=== PATIENT | female | born 1965 | race Caucasian/White ===

== ENCOUNTER → 2017-10-26 | Outpatient (CLI) | payer BC ==
[~2017-10-26] MED LIST: AMOX875T PO; ESCI1TAB10 PO; ONDA4TAB7 SL; [UNRECOGNIZED DRUG - CODE] TOP
--- NOTE | 2017-10-26 14:35 | MAMMOGRAPHY REPORT ---
BILATERAL DIGITAL SCREENING MAMMOGRAM TOMOSYNTHESIS WITH CAD: 10/26/2017 CLINICAL HISTORY: Routine screening. Patient has no complaints. TECHNIQUE: Breast tomosynthesis in addition to standard 2D mammography was performed. Current study was also evaluated with a Computer Aided Detection (CAD) system. COMPARISON: Comparison is made to exams dated: 10/25/2016 mammogram, 11/04/2015 mammogram, 5 mammogram, 10/09/2014 mammogram, 10/08/2013 mammogram, and 10/03/2012 mammogram - [facility]. BREAST COMPOSITION: There are scattered areas of fibroglandular density in both breasts. FINDINGS: No suspicious masses, calcifications, or areas of architectural distortion are noted in ei ther breast. There has been no significant interval change compared to prior exams. Biopsy marker cl ips are again noted bilaterally. Nodular asymmetries in the left superior breast are stable compared to prior exams including the 2010 exam. IMPRESSION: ACR BI-RADS CATEGORY 2: BENIGN There is no mammographic evidence of malignancy. A 1 year screening mammogram is recommended. The pa tient will receive written notification of the results. Approximately 10% of breast cancers are not detected with mammography. A negative mammographic report should not delay biopsy if a clinically suggestive mass is present. Jadyn Ramos M.D. /:10/26/2017 07:51:22 Writing Tutor: Hilary IZAGUIRRE(Emma)(M)(BD), [facility] letter sent: Normal 1/2 BI-RADS Code: ACR BI-RADS Category 2: Benign
== END | disposition home or self-care (01) ==
LOC: C.MAMM 07:32
PROVIDERS: ATTEND Obstetrics & Gynecology
DX: Z12.31 Encounter for screening mammogram for malignant neoplasm of breast (principal)

== ENCOUNTER → 2018-01-05 | Outpatient (CLI) | payer BC | END | disposition home or self-care (01) | LOC: C.PAPS 18:21 | PROVIDERS: ATTEND Obstetrics & Gynecology | DX: Z01.419 Encounter for gynecological examination (general) (routine) without abnormal findings (principal) ==

== ENCOUNTER 2024-07-23 15:18 | Inpatient (IN) ==
[2024-07-23] MEDS: SODIUM CHLORIDE 0.9% 1,000 ML IV ONE (16:18)
--- NOTE | 2024-07-23 16:19 | Emergency Department Note ---
Impression & Plan Diverticulitis, Leukocytosis, Hives, Failure of outpatient treatment ED Provider Note NAME: EVER THOMPSON AGE: 59 SEX: F : 1965 ARRIVES VIA: Walk-In INFORMANT: [Patient] ED PROVIDER(S): [Randy Arango MD] CHIEF COMPLAINT: Abdominal pain HISTORY OF PRESENT ILLNESS: The patient is a 59-year-old female who presents with about 10 days of symptoms. She has had some lower abdominal pain. The patient was diagnosed with diverticulitis in the outpatient setting and placed on Augmentin. Patient has been on Augmentin for 8 days. She did hold the Augmentin last night and this morning though because, she developed hives last evening. The Benadryl she took last evening seemed to take the hives away. This morning, she woke up dizzy and nauseated and lightheaded. She again had hives. She went to her doctor's office and had laboratory work and outpatient CT imaging. Her white blood cell count was 13,000, her CT showed diverticulitis with a small abscess. She was referred to the ER. The patient has not had vomiting. No complaints of urinary issues or diarrhea. She states that 3 to 4 days ago, she developed a fever and also noticed a headache. She had a sore throat for a day or so that now seems to be resolved. PMHx/PSHx/Social Hx: See Below PHYSICAL EXAM: GENERAL: Patient is in no acute distress. HEENT: No acute trauma, normocephalic atraumatic, mucous membranes moist, no nasal congestion. No throat erythema or exudate. NECK: No stridor, no adenopathy, no meningismus, trachea is midline. LUNGS: Clear to auscultation bilaterally, no wheeze, no rhonchi, breath sounds equal. HEART: Without murmurs gallops or rubs, regular rate and rhythm. ABDOMEN: Soft, mildly tender in the lower abdomen, mostly on the right. No distention. EXTREMITIES: No cyanosis, full range of motion of all the joints without pain or difficulty. NEUROLOGIC: Oriented x 3, no acute motor or sensory deficits, no focal weakness. SKIN: No jaundice, no diaphoresis. Erythematous, patchy raised lesions noted consistent with urticaria. These do joaquin. DIFFERENTIAL DIAGNOSIS: Medication reaction, viral illness, diverticulitis, abscess, failed outpatient management, UTI, Lyme disease, among others. EMERGENCY DEPARTMENT PROCEDURES: MEDICAL DECISION MAKING: Outpatient laboratory work today showed a white blood cell count of 13,000 with a normal hemoglobin. CT imaging showed diverticulitis with a potential small abscess within the colonic wall. No perforation. Here in the ED, there was a leukocytosis at 14,000, this is consistent with infection. There is a normal hemoglobin and platelet count. No renal failure or significant electrolyte abnormality. Lactic acid level was not elevated making severe sepsis less likely. There was no concerning liver enzyme elevation. No evidence for pancreatitis. Urinalysis did not show infection. Respiratory bio fire was negative. Lyme disease testing was negative. On exam, the patient had hives. She had tenderness in the lower abdomen bilaterally. The patient received IV saline, 1 L. She was ordered for IV Cipro and IV Flagyl. With the hives noted, she received IV Benadryl and IV Solu-Medrol. The patient is in need of a hospital stay. She has failed outpatient treatment. She may be having a reaction to the Augmentin that had been prescribed outpatient. She persists with diverticulitis on CT imaging and may have a very small abscess on CT imaging. I discussed admission with the patient. I talked to case management, the on- call hospitalist was consulted. Prior/Outside records/notes reviewed: Outpatient CT imaging and laboratory work performed today showing a leukocytosis and diverticulitis with small abscess. Imaging/x-ray results per my interpretation: Chronic Medical/Social conditions affecting care: Care/Management discussed with: Level of care consideration(s): After review of the information above and other included data: --I believe the patient requires escalation of care to admission DISPOSITION: Admission Past Med/Surg History Problem List (Updated 07/23/24 @ 18:13 by Randy Arango MD) Failure of outpatient treatment (Acute) Hives (Acute) Leukocytosis (Acute) Diverticulitis (Acute) Urticaria due to drug allergy Hepatic cyst Depression Seizure disorder (Chronic) Medical History Diverticulitis Family History Aunt Breast cancer, Onset Age: 60 Grandmother (Maternal) Colorectal cancer, Onset Age: 70 Denies family history of Ovarian cancer Social History Smoking Status: Never smoker Do You Dip or Chew Tobacco: No; Preferred Language: Tongan Feels Safe at Home: Yes Allergies Allergies Allergy/AdvReac Type Severity Reaction Status Date / Time amoxicillin Allergy Intermediate Hives Verified 07/23/24 17:11 Home Meds Home Medications Medication Instructions Recorded Confirmed IBgard 1 tab PO DAILY 07/23/24 07/23/24 Probiotic 1 cap PO DAILY 07/23/24 07/23/24 adapalene 0.1 % topical cream 1 applic topical HS PRN Other 07/23/24 07/23/24 estradiol 0.01% (0.1 mg/gram) 1 g vaginal 2XWK PRN Other 07/23/24 07/23/24 vaginal cream sulfacetamide sodium-sulfur 10 %-5 1 applic topical DIRECTED PRN 07/23/24 07/23/24 % (w/w) topical cleanser Other Previous Rx's Medication Instructions Recorded escitalopram oxalate 10 mg tablet 10 mg PO DAILY #90 tabs 01/05/24 Results & Data (ED) Vital Signs Vital Signs - 24 hr 07/23/24 15:37 07/23/24 16:18 07/23/24 16:23 Temperature 36.9 C Temperature Source Oral Pulse Rate 79 74 73 Pulse Rhythm Regular Pulse Strength Normal Respiratory Rate 18 18 Respiratory Effort / Characteristics Non-Labored Respiratory Depth Normal Respiratory Pattern Regular Blood Pressure 132/85 Blood Pressure Mean 100 Blood Pressure Position Sitting Pulse Oximetry 99 98 Oxygen Delivery Method Room Air Room Air Sepsis Recent Fever Within 48 Hours Yes Sepsis New/Unexplained Change in Mental Status No Sepsis Action Taken by Nursing No Action Required Home Medications Current Medication List: was personally reviewed by me Laboratory Data Attestation: I reviewed the patient's lab results. 07/23/24 16:00 07/23/24 16:00 Lab Results 07/23/24 07/23/24 07/23/24 Range/Units 16:00 16:09 16:11 WBC 14.09 H (4.8-10.8) K/ul RBC 4.76 (4.20-5.40) M/uL Hgb 14.5 (12.0-16.0) g/dl Hct 42.4 (37.0-47.0) % MCV 89.1 (80.0-100.0) fL MCH 30.5 (25.0-34.0) pg MCHC 34.2 (32.0-36.0) g/dL RDW Std Deviation 41.1 (36.4-46.3) fL RDW Coeff of Gia 12.6 (11.5-14.5) % Plt Count 295 (130-400) K/uL MPV 9.0 L (9.4-12.4) fL Immature Gran % (Auto) 0.3 % Neut % (Auto) 76.8 % Lymph % (Auto) 17.0 % Woods % (Auto) 5.7 % Eos % (Auto) 0.1 % Baso % (Auto) 0.1 % Neut # (Auto) 10.82 H (1.40-6.50) K/uL Lymph # (Auto) 2.39 (1.20-3.40) K/uL Woods # (Auto) 0.80 H (0.11-0.59) K/uL Eos # (Auto) 0.02 (0.00-0.50) K/uL Baso # (Auto) 0.02 (0.00-0.20) K/uL Immature Gran # (Auto) 0.04 (0.01-0.20) K/uL Sodium 135 L (136-145) mmol/L Potassium 3.6 (3.5-5.1) mmol/L Chloride 99 (98-107) mmol/L Carbon Dioxide 28 (21-32) mmol/L Anion Gap 8 (3-11) BUN 13 (6-23) mg/dl Creatinine 0.72 (0.6-1.2) mg/dl Est Cr Clr Drug Dosing 90.7 ml/min Est GFR ( Amer) 105.5 ml/min Est GFR (Non-Af Amer) 91.0 ml/min BUN/Creatinine Ratio 18.1 (10-20) Glucose 94 (70-99(Fasting)) mg/dl Lactate (0.4-2.0) mmol/L Calcium 9.9 (8.6-10.3) mg/dl Magnesium 1.9 (1.7-2.4) mg/dl Total Bilirubin 0.7 (0.2-1.0) mg/dl AST 18 (13-39) U/L ALT 14 (7-52) U/L Alkaline Phosphatase 59 (34-104) U/L Total Protein 7.8 (6.0-8.3) gm/dl Albumin 4.9 (3.4-5.0) gm/dl Globulin 2.9 (2.5-4.0) gm/dl Albumin/Globulin Ratio 1.7 (0.9-2) Lipase 21 (11-82) U/L Urine Color Yellow Urine Appearance Clear (Clear) Urine pH 7.5 (4.5-7.5) Ur Specific [place] 1.011 (1.000-1.030) Urine Protein Negative (Negative) Urine Glucose (UA) Negative (Negative) Urine Ketones Negative (Negative) Urine Blood Negative (Negative) Urine Nitrite Negative (Negative) Urine Bilirubin Negative (Negative) Urine Urobilinogen Negative (Negative) Ur Leukocyte Esterase 2+ H (Negative) Urine WBC (Auto) 0-5 (0-5) /hpf Urine RBC (Auto) 0-2 (0-2) /hpf U Hyaline Cast (Auto) 0-2 (0-2) /lpf U Epithel Cells (Auto) 0-2 (0-2) /hpf Urine Bacteria (Auto) None Seen (None Seen) Adenovirus (PCR) Not Detected (NotDetected) B. pertussis DNA (PCR) Not Detected (NotDetected) B.parapertussis DNA PCR Not Detected (NotDetected) Lyme Disease Screen Negative (Negative) C. pneumoniae DNA (PCR) Not Detected (NotDetected) Coronavirus OC43 (PCR) Not Detected (NotDetected) Coronavirus HKU1 (PCR) Not Detected (NotDetected) Coronavirus 229E (PCR) Not Detected (NotDetected) SARS-CoV-2 (PCR) Not Detected (NotDetected) Coronavirus NL63 (PCR) Not Detected (NotDetected) Human Metapneumovir PCR Not Detected (NotDetected) Influenza Type A (PCR) Not Detected (NotDetected) Influenza Type B (PCR) Not Detected (NotDetected) M. pneumoniae (PCR) Not Detected (NotDetected) Parainfluenza 1 (PCR) Not Detected (NotDetected) Parainfluenza 2 (PCR) Not Detected (NotDetected) Parainfluenza 3 (PCR) Not Detected (NotDetected) Parainfluenza 4 (PCR) Not Detected (NotDetected) RSV (PCR) Not Detected (NotDetected) Entero/Rhino (PCR) Not Detected (NotDetected) 07/23/24 Range/Units 16:55 WBC (4.8-10.8) K/ul RBC (4.20-5.40) M/uL Hgb (12.0-16.0) g/dl Hct (37.0-47.0) % MCV (80.0-100.0) fL MCH (25.0-34.0) pg MCHC (32.0-36.0) g/dL RDW Std Deviation (36.4-46.3) fL RDW Coeff of Gia (11.5-14.5) % Plt Count (130-400) K/uL MPV (9.4-12.4) fL Immature Gran % (Auto) % Neut % (Auto) % Lymph % (Auto) % Woods % (Auto) % Eos % (Auto) % Baso % (Auto) % Neut # (Auto) (1.40-6.50) K/uL Lymph # (Auto) (1.20-3.40) K/uL Woods # (Auto) (0.11-0.59) K/uL Eos # (Auto) (0.00-0.50) K/uL Baso # (Auto) (0.00-0.20) K/uL Immature Gran # (Auto) (0.01-0.20) K/uL Sodium (136-145) mmol/L Potassium (3.5-5.1) mmol/L Chloride (98-107) mmol/L Carbon Dioxide (21-32) mmol/L Anion Gap (3-11) BUN (6-23) mg/dl Creatinine (0.6-1.2) mg/dl Est Cr Clr Drug Dosing ml/min Est GFR ( Amer) ml/min Est GFR (Non-Af Amer) ml/min BUN/Creatinine Ratio (10-20) Glucose (70-99(Fasting)) mg/dl Lactate 0.7 (0.4-2.0) mmol/L Calcium (8.6-10.3) mg/dl Magnesium (1.7-2.4) mg/dl Total Bilirubin (0.2-1.0) mg/dl AST (13-39) U/L ALT (7-52) U/L Alkaline Phosphatase (34-104) U/L Total Protein (6.0-8.3) gm/dl Albumin (3.4-5.0) gm/dl Globulin (2.5-4.0) gm/dl Albumin/Globulin Ratio (0.9-2) Lipase (11-82) U/L Urine Color Urine Appearance (Clear) Urine pH (4.5-7.5) Ur Specific [place] (1.000-1.030) Urine Protein (Negative) Urine Glucose (UA) (Negative) Urine Ketones (Negative) Urine Blood (Negative) Urine Nitrite (Negative) Urine Bilirubin (Negative) Urine Urobilinogen (Negative) Ur Leukocyte Esterase (Negative) Urine WBC (Auto) (0-5) /hpf Urine RBC (Auto) (0-2) /hpf U Hyaline Cast (Auto) (0-2) /lpf U Epithel Cells (Auto) (0-2) /hpf Urine Bacteria (Auto) (None Seen) Adenovirus (PCR) (NotDetected) B. pertussis DNA (PCR) (NotDetected) B.parapertussis DNA PCR (NotDetected) Lyme Disease Screen (Negative) C. pneumoniae DNA (PCR) (NotDetected) Coronavirus OC43 (PCR) (NotDetected) Coronavirus HKU1 (PCR) (NotDetected) Coronavirus 229E (PCR) (NotDetected) SARS-CoV-2 (PCR) (NotDetected) Coronavirus NL63 (PCR) (NotDetected) Human Metapneumovir PCR (NotDetected) Influenza Type A (PCR) (NotDetected) Influenza Type B (PCR) (NotDetected) M. pneumoniae (PCR) (NotDetected) Parainfluenza 1 (PCR) (NotDetected) Parainfluenza 2 (PCR) (NotDetected) Parainfluenza 3 (PCR) (NotDetected) Parainfluenza 4 (PCR) (NotDetected) RSV (PCR) (NotDetected) Entero/Rhino (PCR) (NotDetected) Administered Medications Discontinued Medications Diphenhydramine HCl (Diphenhydramine 50 Mg/Ml Vial) 25 mg IV NOW STA Stop: 07/23/24 16:09 Last Admin: 07/23/24 16:47 Dose: 25 mg Documented By: EMELY Sodium Chloride (Nss) 1,000 mls @ 999 mls/hr IV .Q1H1M ONE Stop: 07/23/24 16:53 Last Admin: 07/23/24 16:18 Dose: 999 mls/hr Documented By: EMELY Metronidazole (Flagyl) 500 mg in 100 mls @ 100 mls/hr IV NOW STA; Protocol Stop: 07/23/24 17:13 Last Admin: 07/23/24 16:47 Dose: 100 mls/hr Documented By: EMELY Methylprednisolone (Methylprednisolone 125 Mg/2 Ml Vial) 40 mg IV NOW STA Stop: 07/23/24 16:09 Last Admin: 07/23/24 16:47 Dose: 40 mg Documented By: EMELY Discharge Plan Visit Data Chief Complaint: Abdominal Pain Stated Complaint: DIVERTICULITIS ABCESS, HIVES, FEVER, REF BY DOC ED Provider: Randy Arango Discharge Problem: Diverticulitis, Leukocytosis, Hives, Failure of outpatient treatment Patient Disposition: Admitted As Inpatient Condition: Fair Forms Stand Alone Forms: [facility], Important Visit Information Prescriptions Prescriptions: No Action escitalopram oxalate 10 mg tablet 10 mg PO DAILY Qty: 90 3RF sulfacetamide sodium-sulfur 10-5 % (w/w) cleanser 1 applic TOPICAL DIRECTED PRN (Reason: Other) adapalene 0.1 % cream 1 applic TOPICAL HS PRN (Reason: Other) IBgard 1 tab PO DAILY Probiotic 1 cap PO DAILY estradiol 0.01 % (0.1 mg/gram) cream 1 g vaginal 2XWK PRN (Reason: Other) Referrals Referrals: Shaneka Delgado DO [Primary Care Provider] - Discharge Problem: Leukocytosis Qualifiers: Leukocytosis type: unspecified Qualified Code(s): D72.829 - Elevated white blood cell count, unspecified
[2024-07-23 16:35] LABS: Basophils # (auto) 0.02 K/uL (0.00-0.20); Basophils % (auto) 0.1 %; Eosinophils # (auto) 0.02 K/uL (0.00-0.50); Eosinophils % (auto) 0.1 %; Hematocrit (blood only) 42.4 % (37.0-47.0); Hemoglobin 14.5 g/dl (12.0-16.0); Immature Granulocytes # (auto) 0.04 K/uL (0.01-0.20); Immature Granulocytes % (auto) 0.3 %; Lymphocytes # (auto) 2.39 K/uL (1.20-3.40); Mean Corpuscular Hemoglobin 30.5 pg (25.0-34.0); Mean Corpuscular Hgb Conc 34.2 g/dL (32.0-36.0); Mean Corpuscular Volume 89.1 fL (80.0-100.0); Monocytes % (auto) 5.7 %; Neutrophils # (auto) 10.82 K/uL (1.40-6.50); Neutrophils % (auto) 76.8 %; Platelet Count 295 K/uL (130-400); RDW Coefficient of Variation 12.6 % (11.5-14.5); RDW Standard Deviation 41.1 fL (36.4-46.3); Red Blood Count 4.76 M/uL (4.20-5.40); White Blood Count 14.09 K/ul (4.8-10.8)
[2024-07-23 16:41] LABS: Appearance Urine Clear (Clear); Bacteria Urine Automated None Seen (None Seen); Bilirubin Urine Negative (Negative); Blood Urine Negative (Negative); Cast Urine Automated 0-2 /lpf (0-2); Color Urine Yellow; Epithelial Cell Urine Auto 0-2 /hpf (0-2); Glucose Urine UA Negative (Negative); Ketones Urine Negative (Negative); Leukocyte Esterase Urine 2+ (Negative); Nitrite Urine Negative (Negative); Protein Urine Negative (Negative); RBC Urine Automated 0-2 /hpf (0-2); Specific Gravity Urine 1.011 (1.000-1.030); Urobilinogen Urine Negative (Negative); WBC Urine Automated 0-5 /hpf (0-5); pH Urine 7.5 (4.5-7.5)
[2024-07-23] MEDS: methylPREDNISolone 125 MG/2 ML VIAL IV STA (16:47)
[2024-07-23] MEDS: metroNIDAZOLE 500 MG/100 ML BAG IV STA (16:47)
[2024-07-23] MEDS: diphenhydrAMINE 50 MG/ML VIAL IV STA (16:47)
[2024-07-23 16:52] LABS: Albumin Globulin Ratio 1.7 (0.9-2); Albumin Level 4.9 gm/dl (3.4-5.0); BUN Creatinine Ratio 18.1 (10-20); Bilirubin,Total 0.7 mg/dl (0.2-1.0); Calcium 9.9 mg/dl (8.6-10.3); Creatinine Clr Calc Pharmacy 90.7 ml/min; Est GFR (African American) 105.5 ml/min; Globulin 2.9 gm/dl (2.5-4.0); Magnesium 1.9 mg/dl (1.7-2.4); Potassium 3.6 mmol/L (3.5-5.1); Total Protein 7.8 gm/dl (6.0-8.3)
[2024-07-23 17:22] LABS: Adenovirus PCR Not Detected (NotDetected); Bordetella parapertussis PCR Not Detected (NotDetected); Bordetella pertussis PCR Not Detected (NotDetected); Chlamydia pneumoniae PCR Not Detected (NotDetected); Coronavirus 229E PCR Not Detected (NotDetected); Coronavirus CoV-2 (COVID19)PCR Not Detected (NotDetected); Coronavirus HKU1 PCR Not Detected (NotDetected); Coronavirus NL63 PCR Not Detected (NotDetected); Coronavirus OC43PCR Not Detected (NotDetected); Human Metapneumovirus PCR Not Detected (NotDetected); Influenza A PCR Not Detected (NotDetected); Influenza B PCR Not Detected (NotDetected); Mycoplasma pneumoniae PCR Not Detected (NotDetected); Parainfluenza Virus 1 PCR Not Detected (NotDetected); Parainfluenza Virus 2 PCR Not Detected (NotDetected); Parainfluenza Virus 3 PCR Not Detected (NotDetected); Parainfluenza Virus 4 PCR Not Detected (NotDetected); Respiratory Syncytial VirusPCR Not Detected (NotDetected); Rhinovirus/Enterovirus PCR Not Detected (NotDetected)
--- NOTE | 2024-07-23 17:23 | History & Physical Report ---
Date of Service July 23, 2024 Assessment & Plan (1) Diverticulitis: (2) Urticaria due to drug allergy: (3) Hepatic cyst: (4) Depression: Plan Patient with significant symptoms related to diverticulitis that seems to have failed outpatient therapy with Augmentin with probable adverse/allergic reaction to amoxicillin manifested by hives.. Patient at high risk for further decompensation and needs hospital level care and IV antibiotics and monitoring. Admit to the [facility] floor Continue IV ciprofloxacin and Flagyl IV fluid resuscitation Will continue to monitor outpatient response to 1 dose of steroids, would like to avoid additional steroids if possible with setting of possible abscess in the sigmoid colon. Will continue Claritin and Pepcid for antihistamine effect. As needed Benadryl if she has significant pruritus in addition to these treatments. CT of the chest to further evaluate this partial finding of the distal esophagus. Liver cyst can be further evaluated outpatient Monitor laboratory studies At this time there does not appear to be any need for surgical intervention or drainage of this abscess will continue to monitor. Will if patient does not respond to antibiotics may need to consider surgical evaluation. History of Present Illness Chief Complaint: Abdominal pain and hives Primary Care Provider: Shaneka Delgado DO Patient is a 59-year-old female with known diverticulosis with previous episodes of diverticulitis that was treated as an outpatient. Was on vacation in about 2 weeks ago when she started with some abdominal discomfort. Seen urgent care and was started on Augmentin. Seems to get better within 48 hours of starting the Augmentin and continued the course of treatment. Over the weekend she states that she started with some sore throat and generalized malaise. She reportedly tested negative for COVID-19 with a home test. However last night she woke up with diffuse hives over her abdomen arms legs and back. And her abdominal discomfort significantly increased. She had an appointment with her PCP earlier today. Outpatient laboratory studies showed leukocytosis and outpatient CT of the abdomen pelvis revealed persistent diverticulitis with small potentially developing phlegmon versus abscess in the wall of the sigmoid colon. She was referred to the emergency department for further care. In the emergency department reviewed see if some Solu-Medrol for the hives. WBCs was increased at 14 and she was referred for further evaluation and treatment in the hospital due to failing outpatient treatment. Patient at the time of my evaluation is feeling improved. She reports never having issues with penicillins before. No other new medications or products that she could point to that may have caused the hives. She reports having had successful treatment of Augmentin for diverticulitis in the past. Her last colonoscopy was in 2020 which showed the diverticulosis. She denies any documented fevers. No chills or rigors. Did have some constipation early on in her course of care but none since. No urinary complaints. States that her pain is really across her abdomen and suprapubically. is at bedside confirms history. Patient does not smoke does not use alcohol. Allergies Allergy/AdvReac Type Severity Reaction Status Date / Time amoxicillin Allergy Intermediate Hives Verified 07/23/24 17:11 Home Medications Medication Instructions Recorded Confirmed Type escitalopram oxalate 10 mg tablet 10 mg PO DAILY #90 tabs 01/05/24 07/23/24 Rx IBgard 1 tab PO DAILY 07/23/24 07/23/24 History Probiotic 1 cap PO DAILY 07/23/24 07/23/24 History adapalene 0.1 % topical cream 1 applic topical HS PRN Other 07/23/24 07/23/24 History estradiol 0.01% (0.1 mg/gram) 1 g vaginal 2XWK PRN Other 07/23/24 07/23/24 History vaginal cream sulfacetamide sodium-sulfur 10 %-5 1 applic topical DIRECTED PRN 07/23/24 07/23/24 History % (w/w) topical cleanser Other Past Med/Surg History Problem List (Updated 07/23/24 @ 17:20 by Raul Acevedo DO) Urticaria due to drug allergy Hepatic cyst Depression Seizure disorder (Chronic) Family History Aunt Breast cancer, Onset Age: 60 Grandmother (Maternal) Colorectal cancer, Onset Age: 70 Denies family history of Ovarian cancer Social History Smoking Status: Never smoker Do You Dip or Chew Tobacco: No; Preferred Language: Belarusian Feels Safe at Home: Yes Review of Systems 2 Review of Systems: Pertinent positive and negative review of systems as mentioned in the HPI Physical Exam Physical Exam: Constitutional: Alert, ill in appearance, no acute distress, mildly toxic in appearance HEENT: Mucous membranes moist. Sclera clear Neck: Soft, no adenopathy Lungs: Clear to auscultation, decreased, no wheezes rales or rhonchi CV: S1-S2, regular Abdomen: Soft, suprapubic tenderness, right lower quadrant tenderness, left lower quadrant tenderness most significant. Some mild rebound but no guarding or rigidity Extremities: No significant edema Musculoskeletal: No significant joint tenderness Neuro: No focal deficits Derm: Patient with large urticaria over her abdomen, upper arms, upper legs, back, warm to touch Psych: Cooperative, normal mood Results & Data Results & Data Vital Signs (Past 12 Hours) Vital Signs Temp Pulse Resp BP Pulse Ox O2 Del Method 07/23/24 16:23 73 07/23/24 16:18 74 18 98 Room Air 07/23/24 15:37 36.9 C 79 18 132/85 99 Room Air Diagnostic Findings Reviewed imaging, laboratory and diagnostic studies. Pertinent findings as below. WBCs 14.0, hemoglobin 14.5 Sodium 135 Potassium 3.6 Creatinine 0.72 Lactate 0.7 LFTs within normal limits Lipase 21 Urinalysis unremarkable Respiratory viral panel pending Reviewed outpatient/alternate EMR. Reviewed last colonoscopy report Reviewed CT abdomen pelvis report done earlier today. Findings show thickening of the sigmoid colon with stranding and possible early intramural abscess phlegmon in the wall of the sigmoid colon. Hepatic complex cyst. And questionable some type of low-density lesion abutting the distal esophagus has not fully visualized Medications Administered Flagyl, Benadryl, methylprednisone Code Status & VTE Plan VTE Prophylaxis Plan VTE Prophylaxis will be ordered: Yes
[2024-07-23] MEDS: CIPROFLOXACIN / D5W 400 MG/200 ML BAG IV STA (18:17)
--- NOTE | 2024-07-23 19:17 | CT Scan Report ---
CT OF THE CHEST WITHOUT IV CONTRAST CLINICAL HISTORY: Lesion near distal esophagus seen outpt abd CT. COMPARISON STUDY: Chest radiograph April 02, 2015. CT of the abdomen and pelvis April 02, 2015. CT DOSE: 312.36 mGy.cm TECHNIQUE: Axial images of the chest were obtained without IV contrast. Images were reviewed in the axial, sagittal, and coronal planes. IV contrast was not administered for this examination. Automat ed exposure control was utilized for the study. A dose lowering technique was utilized adhering to t he principles of ALARA. FINDINGS: No enlarged mediastinal, axillary or hilar lymph nodes are present. Size of the heart is n ormal. There is no significant pericardial effusion. A 2.5 cm water attenuation density along the rig ht lateral aspect of the distal esophagus represents a pericardial recess. This could reflect the abn ormality on prior outpatient imaging study. No pneumothorax or pleural effusion is present. There is no consolidation to suggest pneumonia. There are no suspicious pulmonary nodules. No fractures within the bony thorax are present. There is a left hepatic lobe cyst. IMPRESSION: 1. 2.5 cm water attenuation density along the right lateral aspect of the distal esophagus which repr esents a pericardial recess, a benign finding. Correlation with outpatient abdominal CT to confirm th at this represents the abnormality in question is recommended. 2. No thoracic lymphadenopathy. No mediastinal masses. 3. No consolidation to suggest pneumonia. ACT 112: Negative or not required by law. Electronically signed by: Rigoberto Pereira M.D. 07/23/2024 7:15 PM
[2024-07-23] MEDS ORDERED: ACETAMINOPHEN 325 MG TAB PO PRN (20:30)
[2024-07-23] MEDS ORDERED: ONDANSETRON INJ 2 MG/ML 2 ML VIAL IV PRN (20:30)
[2024-07-23] MEDS ORDERED: KETOROLAC TROMETHAMINE 15 MG/ML VIAL IV PRN (20:30)
[2024-07-23] MEDS ORDERED: oxyCODONE HCL IR 5 MG TAB (IMMEDIATE RELEASE) PO PRN (20:30)
[2024-07-23] MEDS ORDERED: Nursing to Pharmacy Communication SCH (20:45)
[2024-07-23] MEDS: NSS + 20MEQ KCL 20 MEQ/1,000 ML BAG IV SCH (21:17)
[2024-07-23] MEDS: FAMOTIDINE 20MG IV PUSH 20 MG/5 ML SYR IV SCH (21:18)
[2024-07-23] MEDS: ENOXAPARIN INJ 40 MG/0.4 ML SYR SQ SCH (21:18)
[2024-07-23] MEDS: LORATADINE 10 MG TAB PO SCH (21:30)
[2024-07-23] MEDS: metroNIDAZOLE 500 MG/100 ML BAG IV SCH (23:51)
--- OUTSIDE RECORDS SUMMARY | 2024-07-24 05:09 | External Medical Summary ---
Author Name Unknown Address Unknown Organization [id number]:[facility] [address] [place] [id number] Laboratory Report Ordering Provider Test Date Status FRANNIE NEGRO 07/23/2024 12:34:06 Final Observation Date Value Abnormality Reference (Units ) Status WBC, Total 07/23/2024 12:34:06 13.68 Above high normal 4 .00-10.80 (K/uL) Final RBC 07/23/2024 12:34:06 4.35 3.85-5.15 (M/uL) Final Hemoglobin 07/23/2024 12:34:06 13.5 12.0-15.3 (g/dL) Final Anemia reflex testing trigge rs on a HGB < 12.0 for Females and HGB < 13.0 for Males in accordance with the WHO Anemia Guidelines
Anemia reflex testing triggers on a HGB < 12.0 for Females and HGB < 13.0 for Males in accordance with the WHO Anemia Guidelines HCT 07/23/2024 12:34:06 39.4 36.0-45.2 (%) Final MCV 07/23/2024 12:34:06 90.6 81.5-97.5 (fL) Final MCH 07/23/2024 12:34:06 31.0 27.0-34.0 (pg) Final MCHC 07/23/2024 12:34:06 34.3 32.0-36.0 (g/dL) Final RDW 07/23/2024 12:34:06 12.8 11.5-15.5 (%) Final Platelets 07/23/2024 12:34:06 275 140-400 (K /uL) Final MPV 07/23/2024 12:34:06 8.8 6.6-11.1 ( fL) Final Performing Location [facility] [address] [place] [id number]
--- OUTSIDE RECORDS SUMMARY | 2024-07-24 05:09 | External Medical Summary | Summary of Care ---
Author Name Unknown Organization [facility] Address [address] [facility] [place] [address] Phone [phone] Care Team Providers Care Flooring Machine Operator Name Role Phone Danny Shaneka Ariane LUBIN Primary Care Provider [phone] Reason for Visit * Reason Comments Rheum Follow Up Recheck bilateral th umb pain Encounter Details Date Type Department Care Team (Latest Contact Info) Description 04/08/2024 8:00 AM EDT Office Visit Rheumatology [address] [id number] [place] [address] Kit Kennedy PA-C [address] [facility] [place] [facility] [place] [address] Arthritis of carpometacarpal (CMC) joint of both thumbs* Allergies No known active allergiesdocumented as of this encounter (statuses as of 04/08/2024) Medications Medication Sig Dispensed Refills Start Date End Date Status LEXAPRO 10 MG PO TABSIndications:Anxi ety state (1) daily 90 Tab 3 04/11/2012 Active Sulfacetamide Sodium-Sulfur 10-5 % EMUL Use twice daily as needed 03/19/2015 Active ondansetron (ZOFRAN) 4 MG TabletIndications:Na usea Take 1 Tab by mouth every 6 hours as needed for Nausea. 30 Tab 03/06/2017 Active Additional Information Patient not taking.Reported on 04/08/2024 ibuprofen (MOTRIN) 600 MG Tablet As needed 10/28/2019 Active triamcinolone acetonide (ARISTOCORT) 0.1 % cream As needed 10/01/2019 Active Tretinoin 0.075 % External Cream Apply topically to affected area. Apply to face Active Albuterol Sulfate HFA 108 (90 Base) MCG/ACT Inhalation Aerosol SolutionIndications: Acute bronchitis, antibiotics not indicated 2 puffs as needed every 4 hours as needed 18 g 02/06/2023 Active Estradiol 0.1 MG/GM Vaginal Cream APPLY 1 GRAM VAGINALLY TWICE A WEEK DIRECTED 02/17/2022 Active Hospital, Clinic, or Other Facility Administered Medication Ordered Dose Route Frequency Start Date End Date Status methylPREDNISolone acetate (Depo-Medrol) 40 MG/ML inj 40 mgIndications:Arthriti s of carpometacarpal (CMC) joint of both thumbs 40 mg IX ONCE 04/08/2024 04/08/2024 Discontinued methylPREDNISolone acetate (Depo-Medrol) 40 MG/ML inj 40 mgIndications:Arthriti s of carpometacarpal (CMC) joint of both thumbs 40 mg IX ONCE 04/08/2024 04/08/2024 Discontinued methylPREDNISolone acetate (Depo-Medrol) 40 MG/ML inj 20 mgIndications:Arthriti s of carpometacarpal (CMC) joint of both thumbs 20 mg IX ONCE 04/08/2024 04/08/2024 Ended methylPREDNISolone acetate (Depo-Medrol) 40 MG/ML inj 20 mgIndications:Arthriti s of carpometacarpal (CMC) joint of both thumbs 20 mg IX ONCE 04/08/2024 04/08/2024 Ended documented as of this encounter (statuses as of 04/08/2024) Active Problems Problem Noted Date Diagnosed Date Arthritis of carpometacarpal (CMC) joint of both thumbs 04/08/2024 Gastroesophageal reflux disease with esophagitis 03/27/2019 IBS (irritable bowel syndrome) 03/27/2019 Displacement of lumbar inter vertebral disc without myelopathy 03/03/2006 Endometriosis documented as of this encounter (statuses as of 04/08/2024) Resolved Problems Problem Noted Date Diagnosed Date Resolved Date Family history of lymphoma 08/07/2014 0 03/27/2019 Overview: Both parents ADVANCE DIRECTIVE INFORMATION 09/07/2006 10/25/2018 Overview: Yes, Patient instructed to provide copy of advance directive for provider to review and to be scanned into Electronic Medical Record 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 03/08/2018 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 10/25/2018 Female infertility 8 documented as of this encounter (statuses as of 04/08/2024) Immunizations Name Administration Dates Next Due COVID-19 mRNA, LNP-s, No Pre serve, 2-Dose Series (Pfizer) 01/26/2021,01/05/2021 PPD 05/20/2011 Pneumococcal Polysaccharide PPV23 (Pneumovax) 08/13/2020 Seasonal Influenza, PF, 6 M & above, IM , (FluLaval or Fluzone) 08/26/2017 Seasonal Influenza, Quadriva lent, No Preserve, IM 07/31/2023,08/02/2021,08/05/2020,09/07,08/11/2015 Seasonal Influenza, Split, I IV3, With Preserve, Inj 08/07/2014,08/06/2013,08/21/2012,07/2012,08/10/2010,08/12/2009,09/19/20 08,09/11/2007 TD - Tetanus/Diptheria (ADULT) 01/17/2000 0 01/16/2010 TD, Preservative Free 01/17/2000 TDAP (age 10 and older)(Boostrix) 10/27/2020 TDAP, Age 7 and older, IM (Adacel) 03/24/2010 Zoster Vaccine Recombinant (Shingrix) 06/22/2018 ,04/07/2018 documented as of this encounter Social History Tobacco Use Types Packs/Day Years Used Date Smoking Tobacco: Never Smokeless Tobacco: Never Tobacco Cessation:Counseling Given: Not Answered Alcohol Use Standard Drinks/Week Comments Not Currently 0 (1 standard drink = 0.6 oz pur e alcohol) socially only PHQ-2 Answer Date Recorded PHQ Adult Total Score 0 08/22/2023 Hunger Vital Sign Answer Date Recorded Within the past 12 months, y ou worried that your food would run out before you got the money to buy more. Never true 02/07/20 23 Within the past 12 months, t he food you bought just didn't last and you didn't have money to get more. Never true 02/06/2023 Sex and Gender Information Value Date Recorded Sex Assigned at Female 03/27/2019 3:37 PM EDT Gender Identity Female 03/27/2019 3:37 PM EDT Sexual Orientation Straight 02/06/2023 8: 02 AM EDT Job Start Date Occupation Industry Not on file Not on file Not on file documented as of this encounter Last Filed Vital Signs Vital Sign Reading Time Taken Comments Blood Pressure 110/70 04/08/2024 8:05 AM EDT Pulse - - Temperature 36.9 C (98.4 F) 04/08/2024 8:05 AM ED T Respiratory Rate - - Oxygen Saturation - - Inhaled Oxygen Concentration - - Weight 73.9 kg (163 lb) 04/08/2024 8:05 AM EDT Height - - Body Mass Index 24.78 01/30/2024 1:42 PM EDT documented in this encounter Progress Notes * Kit Kennedy PA-C - 04/08/2024 7:57 AM EDTAssociated Order(s): SM Joint Inj/Arthro: bilateral thumb CMC Post-Procedure Diagnose(s): Arthritis of carpometacarpal (CMC) joint of both thumbs Subjective: Patient seen today for further follow up evaluation of osteoarthritis of bilateral thumbs. Has someother arthritis changes to great to and DIP joints of hands, but thumbs are painful. Last injected in 2020. Has been using Voltaren without any real relief. Previous injections did help. All other review of systems reviewed and negative other than mentioned in HPI. Social History: Social History Tobacco Use Smoking status: Never Smokeless tobacco: Never Substance Use Topics Alcohol use: Not Currently Comment: socially only Vaping/E-Cigarette Use Vaping/E-Cigarette Use Never User Vaping/E-Cigarette Substances Vaping/E-Cigarette Devices All other review of systems reviewed and negative other than mentioned in HPI. Current Outpatient Medications Medication Sig Dispense Refill LEXAPRO 10 MG PO TABS (1) daily 90 Tab 3 Sulfacetamide Sodium-Sulfur 10-5 % EMUL Use twice daily as needed ibuprofen (MOTRIN) 600 MG Tablet As needed triamcinolone acetonide (ARISTOCORT) 0.1 % cream As needed Tretinoin 0.075 % External Cream Apply topically to affected area. Apply to face Albuterol Sulfate HFA 108 (90 Base) MCG/ACT Inhalation Aerosol Solution 2 puffs as needed every 4 hours as needed 18 g 0 Estradiol 0.1 MG/GM Vaginal Cream APPLY 1 GRAM VAGINALLY TWICE A WEEK DIRECTED ondansetron (ZOFRAN) 4 MG Tablet Take 1 Tab by mouth every 6 hours as needed for Nausea. (Patient not taking: Reported on 04/08/2024) 30 Tab 0 No current facility-administered medications for this visit. Physical Exam: BP 110/70 | Temp 36.9 C (98.4 F) (Infrared ) | Wt 73.9 kg (163 lb) | BMI 24.78 kg/m | BSA 1.88 m Physical Exam Musculoskeletal: General: Tenderness present. No swelling. Normal range of motion. Comments: Heberdens nodes of DIP joints noted on bilateral hands. Probably ganglion cyst on anterior ankle. Surgery with Fixed left great toe and some bulky nodes on right great toe Assessment: 1. Arthritis of carpometacarpal (CMC) joint of both thumbs Consent obtained. Injection performed as noted below. Can follow up prn for further injections. Cancontinue Voltaren up to 4 times daily. - methylPREDNISolone acetate (Depo-Medrol) 40 MG/ML inj 20 mg - methylPREDNISolone acetate (Depo-Medrol) 40 MG/ML inj 20 mg SM Joint Inj/Arthro: bilateral thumb CMC on 04/08/2024 8:30 AM Indications: pain Details: 25 G needle, radial approach Medications (Right): (20 mg depo-medrol) Aspirate (Right): 0 mL Medications (Left): (20 mg depo-medrol) Aspirate (Left): 0 mL Outcome: tolerated well, no immediate complications Procedure, treatment alternatives, risks and benefits explained, specific risks discussed. Consent was given by the patient. Immediately prior to procedure a time out was called to verify the correctpatient, procedure, equipment, unit support representative and site/side marked as required. Patient was prepped and draped in the usual sterile fashion. Kit Kennedy PA-C Department of Rheumatology The patient was discussed with me. I agree with the findings and plan as documented by Kit [place] in this note. Jah Loza MD Rheumatology Department documented in this encounter Nursing Notes * José Miguel Marin LPN - 04/08/2024 8:04 AM EDT Chief Complaint Patient presents with Rheum Follow Up Recheck bilateral thumb pain documented in this encounter Plan of Treatment Upcoming Encounters Date Type Department Care Team (Late st Contact Info) Description 02/04/2025 2:00 PM EDT Office Visit Family Practice [facility] [address] [place] [address] Shaneka Delgado DO [address] [place] [address] Scheduled Procedures Name Priority Associated Diagnoses Date/Ti me COLONOSCOPY FLEXIBLE PROXIMAL DIAGNOSTIC Recall History of colon polyps Health Maintenance Due Date Last Done Comments HIV Screening 1979 Hepatitis C Screening 1982 Cologuard 2009 Fecal Occult Blood Test 2009 Sigmoidoscopy 2009 COVID-19 Vaccine ( season) 2023 01/26/2021, 01/05/2021 Depression Screening 08/22/2024 08/22/2023 Mammogram 11/30/2024 11/30/2023, 11/07, 11/23/2021, Additional history exists Colonoscopy 02/17/2026 02/17/2021, 02/04, 05/29/2015, Additional history exists Colorectal Cancer Screening 02/17/2026 Diabetes Screening 02/13/2027 02/14/2024, 0 11/08/2022, 11/08/2022, Additional history exists Lipid Panel 02/13/2029 02/14/2024, 04/06, 09/06/2014, Additional history exists DTaP,Tdap,and Td Vaccines (3 - Td or Tdap) 10/27/2030 10/27/2020, 03/24/2010, 01/17/2000, Additional history exists Pap Smear Discontinued 06/25/2015 (Done elsewhere), 06/14/2013, 06/14/2013 (Done elsewhere), Additional history exists Zoster Vaccines Completed 06/22/2018, 04/07/2018 Pneumococcal Vaccine: Pediatrics (0 to 5 Years) and At-Risk Patients (6 to 64 Years) Aged Out 08/13/2020 No longer eligible based on patient's age to complete this topic RETIRED - COLONOSCOPY-EVERY 5 YRS AGES 18-100 Discontinued 02/17/2021, 02/17/2021, 05/29/2015, Additional history exists Influenza Vaccine (FLU shot) Completed 07/31/2023, 08/02/2021, 08/05/2020, Additional history exists GARDASIL-HPV IMMUNIZATION SERIES Aged Out No longer eligible based on patient's age to complete this topic Hepatitis B Aged Out No longer eligi ble based on patient's age to complete this topic MENINGOCOCCAL (MENACTRA/MENVEO) Aged Out No longer eligible based on patient's age to complete this topic documented as of this encounter Medical Devices Not on filedocumented as of this encounter Procedures Procedure Name Priority Date/Time Associated Diagnosis Comments ME ARTHROCENTESIS ASPIR&/INJ SMALL JT/BURSA W/O US Routine 04/08/2024 8:30 AM EDT Arthritis of carpometacarpal (CMC) joint of both thumbs documented in this encounter Results * ME ARTHROCENTESIS ASPIR&/INJ SMALL JT/BURSA W/O US (04/08/2024 8:30 AM EDT) Narrative Jah Loza MD - 04/08/2024 8:30 AM EDT Jah Loza MD 04/08/2024 9:32 AM SM Joint Inj/Arthro: bilateral thumb CMC on 04/08/2024 8:30 AM Indications: pain Details: 25 G needle, radial approach Medications (Right): (20 mg depo-medrol) Aspirate (Right): 0 mL Medications (Left): (20 mg depo-medrol) Aspirate (Left): 0 mL Outcome: tolerated well, no immediate complications Procedure, treatment alternatives, risks and benefits explained, specific risks discussed. Consent was given by the patient. Immediately prior to procedure a time out was called to verify the correct patient, procedure, equipment, unit support representative and site/side marked as required. Patient was prepped and draped in the usual sterile fashion. Kit Kennedy PA-C PROCDOC FORM documented in this encounter Visit Diagnoses Diagnosis Arthritis of carpometacarpal (CMC) joint of both thumbs- Primary documented in this encounter Administered Medications Inactive Administered Medications - up to 3 most recent administrations Medication Order MAR Action Action Date Dose Rate Site methylPREDNISolone acetate (Depo-Medrol) 40 MG/ML inj 20 mg 20 mg, Intra-Articular, ONCE, On Mon04/08/24 at 0845, For 1 dose Given 04/08/2024 8:26 AM EDT 20 mg Hand Right methylPREDNISolone acetate (Depo-Medrol) 40 MG/ML inj 20 mg 20 mg, Intra-Articular, ONCE, On Mon04/08/24 at 0845, For 1 dose Given 04/08/2024 8:25 AM EDT 20 mg Hand Left documented in this encounter Care Teams Flooring Machine Operator Relationship Specialty Start Date End Date Shaneka Delgado DO [address] [place] [address] PCP - General Family Medicine 11/26/18 documented as of this encounter"
--- OUTSIDE RECORDS SUMMARY | 2024-07-24 05:09 | External Medical Summary ---
Author Name Unknown Address Unknown Organization [facility] [address] [place] [id number] Laboratory Report Ordering Provider Test Date Status FRANNIE NEGRO 07/23/2024 12:34:06 Final Observation Date Value Abnormality Reference (Units ) Status SYNC LEUKOCYTES IN BLOOD BY AUTOMATED COUNT 07/23/2024 12:34:06 13.68 Above high normal 4.00-10.80 (K/uL) Final Segs 07/23/2024 12:34:06 83.6 Above high normal 40.0-75.0 (%) Final Lymphs % 07/23/2024 12:34:06 9.6 Below low normal 18.0-42.0 (%) Final Monos 07/23/2024 12:34:06 6.6 1.0-11.0 (%) Final Eosinophils 07/23/2024 12:34:06 0.1 0.0-6.0 (%) Final Basos 07/23/2024 12:34:06 0.1 0.0-2.0 (%) Final Absolute Segs 07/23/2024 12:34:06 11.45 Above high normal 1.80-7.70 (K/uL) Final Lymphs, absolute 07/23/2024 12:34:06 1.31 1.00-4.80 (K/ul) Final Monos, Abs 07/23/2024 12:34:06 0.90 0.00-1.10 (K/uL) Final Eos, Abs 07/23/2024 12:34:06 0.01 0.00-0.70 (K/uL) Final Basos, Abs 07/23/2024 12:34:06 0.01 0.00-0.20 (K/uL) Final [facility]forming Location [facility] [address] [place] [id number]
--- OUTSIDE RECORDS SUMMARY | 2024-07-24 05:09 | External Medical Summary ---
Author Name Unknown Address Unknown Organization [facility] [place] [address] Laboratory Report Ordering Provider Test Date Status FRANNIE NEGRO 07/23/2024 12:34:06 Final Observation Date Value Abnormality Reference (Units ) Status BUN 07/23/2024 12:34:06 16 6-20 (mg/dL) Final Creatinine 07/23/2024 12:34:06 0.7 0.5-1.0 (mg/dL) Final Glomerular filtration rate/1.73 sq M.predicted [Volume Rate/Area] in Serum, Plasma or Blood by Creatinine-based formula (CKD-EPI) 07/23/2024 12:34:06 >90 >=60 (mL/min) Final eGFR is calculated based on the CKD-EPI 2020 equation. Sodium 07/23/2024 12:34:06 140 135-146 (m mol/L) Final Potassium 07/23/2024 12:34:06 4.3 3.5-5.1 (m mol/L) Final Cl 07/23/2024 12:34:06 102 98-107 (mm ol/L) Final CO2 07/23/2024 12:34:06 25 22-32 (mmo l/L) Final Anion gap 07/23/2024 12:34:06 13 7-15 (mmol /L) Final Glucose 07/23/2024 12:34:06 115 70-120 (mg /dL) Final Calcium 07/23/2024 12:34:06 9.9 8.4-10.2 ( mg/dL) Final Performing Location [facility] [place] [id number]
--- OUTSIDE RECORDS SUMMARY | 2024-07-24 05:09 | External Medical Summary | Summary of Care ---
Author Name Unknown Organization [facility] Address [address] [facility] [place] [place] [address] Phone [phone] Care Team Providers Care Central Station Operator Name Role Phone Shaneka Deglado DO Primary Care Provider [phone] Reason for Visit * Reason Onset Date Comments Health Maintenance 06/18/2024 Encounter Details Date Type Department Care Team (Late st Contact Info) Description 06/18/2024 Telephone Family Practice [facility] [address] [place] [address] Shaneka Delgado DO [address] [place] [address] Health Maintenance Allergies No known active allergiesdocumented as of this encounter (statuses as of 06/18/2024) Medications Medication Sig Dispensed Refills Start Date [...] VAGINALLY TWICE A WEEK DIRECTED 02/17/2022 Active documented as of this encounter (statuses as of 06/18/2024) Active Problems Problem Noted Date Diagnosed Date Arthritis of carpometacarpal (CMC) joint of both thumbs 04/08/2024 Gastroesophageal reflux disease with esophagitis 03/27/2019 IBS (irritable bowel syndrome) 03/27/2019 Displacement of lumbar inter vertebral disc without myelopathy 03/03/2006 Endometriosis documented as of this encounter (statuses as of 06/18/2024) Resolved Problems Problem Noted Date Diagnosed Date [...] as of this encounter (statuses as of 06/18/2024) Immunizations Name Administration Dates Next Due COVID-19 mRNA, LNP-s, No Pre serve, 2-Dose Series (MembraneX) 01/26/2021,01/05/2021 PPD 05/20/2011 Pneumococcal Polysaccharide PPV23 (Pneumovax) 08/13/2020 Seasonal Influenza, PF, 6 M & above, IM , (FluLaval or Fluzone) 08/26/2017 Seasonal Influenza, Quadriva lent, No Preserve, IM 07/31/2023,08/02/2021,08/05/2020,10/04,08/11/2015 Seasonal Influenza, Split, I IV3, With Preserve, Inj 08/07/2014,08/06/2013,08/21/2012,11/14,08/10/2010,08/12/2009,09/19/2008 ,09/11/2007 TD, Preservative Free 01/17/2000 TDAP (age 10 and older)(Boostrix) 10/27/2020 TDAP, Age 7 and older, IM (Adacel) 03/24/2010 Zoster Vaccine Recombinant (Shingrix) 06/22/2018 ,04/07/2018 documented as of this encounter Social History Tobacco Use Types Packs/Day Years Used Date Smoking Tobacco: Never Smokeless Tobacco: Never Alcohol Use Standard Drinks/Week Comments Not Currently [...] money to get more. Never true 02/06/2023 Utilities Answer Date Recorded Do you have trouble paying y our heating, water, or electric bill? (Adult - for ages 18 years and over) Not on file 04/23/2024 Is your family able to pay t he heat, water, or electric bill? (Household - for ages 0-17 years) Not on file 04/23/2024 Does your family have access to good internet? (Household - for ages 0-17 years) Not on file 04/23/2024 Social Connections Answer Date Recorded How often do you feel lonely or isolated from those around you? (Adult - for ages 18 years and over) Not on file 04/23/2024 Sex and Gender Information Value Date Recorded Sex Assigned at Female 03/27/2019 3:37 PM EDT Gender Identity Female 03/27/2019 3:37 PM EDT Sexual Orientation Straight 02/06/2023 8: 02 AM EDT Job Start Date Occupation Industry Not on file Not on file Not on file documented as of this encounter Miscellaneous Notes * Telephone Encounter - Breanne BaezANDREI - 06/18/2024 8:50 AM EDT Care Gaps Comprehensive Care Outreach Last Office/Telemedicine Visit: 01/30/2024 (in office), 05/27/2020 (telemedicine) Next Office Visit: 02/04/2025 Hemoglobin AIC Results: Lab Results Component Value Date/Time HEMOGLOBIN A1C - WILIAN 5.2 11/08/2022 02:33 PM BP Readings from Last 1 Encounters: 04/08/24 110/70 Reviewed Health Maintenance below: Health Maintenance Topic Date Due HIV Screening Never done Hepatitis C Screening Never done COVID-19 Vaccine ( season) 2023 Influenza Vaccine (FLU shot) (1) 07/07/2024 Depression Screening 08/22/2024 Mammogram 11/30/2024 Mamm nov 30 [facility] Care Gap Outreach Action Taken: Outreach not indicated documented in this encounter Plan of Treatment Upcoming Encounters Date Type Department Care Team (Late st Contact Info) Description 02/04/2025 2:00 PM EDT Office Visit Family Practice [facility] [address] [place] [address] Shaneka Delgado DO [address] [place] [address] Scheduled Procedures Name Priority Associated Diagnoses Date/Ti me COLONOSCOPY FLEXIBLE PROXIMAL DIAGNOSTIC Recall History of colon polyps Health Maintenance Due Date Last Done Comments HIV Screening 1979 Hepatitis C Screening 1982 Cologuard 2009 Fecal Occult Blood Test 2009 Sigmoidoscopy 2009 COVID-19 Vaccine ( season) 2023 01/26/2021, 01/05/2021 Influenza Vaccine (FLU shot) (#1) 2024 07/31/2023, 08/02/2021, 08/05/2020, Additional history exists Depression Screening 08/22/2024 08/22/2023 Mammogram 11/30/2024 11/30/2023, 11/07, 11/23/2021, Additional history exists Colonoscopy 02/17/2026 02/17/2021, 02/04, 05/29/2015, Additional history exists Colorectal Cancer Screening 02/17/2026 Lipid Panel 02/13/2029 02/14/2024, 04/06, 09/06/2014, Additional [...] Discontinued 02/17/2021, 02/17/2021, 05/29/2015, Additional history exists HPV (Gardasil) Vaccine Aged Out No lo nger eligible based on patient's age to complete this topic Hepatitis B Vaccine Aged Out No longe r eligible based on patient's age to complete this topic MENINGOCOCCAL (MENACTRA/MENVEO) Aged Out No longer eligible based on patient's age to complete this topic documented as of this encounter Medical Devices Not on filedocumented as of this encounter Care Teams Central Station Operator Relationship Specialty Start Date End Date Shaneka Delgado DO [address] [place] [address] PCP - General Family Medicine 11/26/18 documented as of this encounter
--- OUTSIDE RECORDS SUMMARY | 2024-07-24 05:10 | External Medical Summary | Summary of Care ---
Author Name Unknown Organization [facility] Address [address] [facility] [place] [address] Phone [phone] Care Team Providers Care Sales Trainee Name Role Phone Danny Shaneka Ariane LUBIN Primary Care Provider [phone] Reason for Visit * Reason Comments Rheum Follow Up Recheck bilateral th umb pain Encounter Details Date Type Department Care Team (Latest Contact Info) Description 04/08/2024 8:00 AM EDT Office Visit Rheumatology [phone] [place] [address] Kit Kennedy PA-C [address] [place] [address] Arthritis of carpometacarpal (CMC) joint of both [...] 1:42 PM EDT documented in this encounter Nursing Notes * José Miguel Marin LPN - 04/08/2024 8:04 AM EDT Chief Complaint Patient presents with Rheum Follow Up Recheck bilateral thumb pain documented in this encounter Plan of Treatment Upcoming Encounters Date Type Department Care Team (Late st Contact Info) Description 02/04/2025 2:00 PM EDT Office Visit Family [facility] [address] [place] [address] Shaneka Delgado DO [address] [place] [address] Pending Results Name Type Priority Associated Diagnoses Date /Time SM Joint Inj/Arthro: bilateral thumb CMC Procedures Routine Arthritis of carpometacarpal (CMC) joint of both thumbs 04/08/2024 8:30 AM EDT Scheduled Procedures Name Priority Associated Diagnoses Date/Ti [...] Procedure Name Priority Date/Time Associated Diagnosis Comments PROCDOC SMALL JOINT INJECTION/ARTHROCENTE SIS Routine 04/08/2024 8:30 AM EDT Arthritis of carpometacarpal (CMC) joint of both thumbs documented in this encounter Visit Diagnoses Diagnosis [...] Left documented in this encounter Care Teams Sales Trainee Relationship Specialty Start Date End Date Shaneka Delgado DO [address] [place] [address] PCP - General Family Medicine 11/26/18 documented as of this encounter
--- OUTSIDE RECORDS SUMMARY | 2024-07-24 05:10 | External Medical Summary | Summary of Care ---
Author Name Unknown Organization [facility] Address [address] [place] [address] Phone [phone] Care Team Providers Care Nursing Educator Name Role Phone Danny Shaneka Ariane LUBIN Primary Care Provider [phone] Reason for Visit * Reason Comments Rheum Follow Up Recheck bilateral th umb pain Encounter Details Date Type Department Care Team (Latest Contact Info) Description 04/08/2024 8:00 AM EDT Office Visit Rheumatology [address] [place] [place] [address] Kit Kennedy PA-C [address] [place] [address] Arthritis of carpometacarpal (CMC) joint of both [...] called to verify the correctpatient, procedure, equipment, it application support analyst and site/side marked as required. Patient was [...] 2:00 PM EDT Office Visit Family Practice [facility] [address] [place] [address] Shaneka Delgado DO [address] [place] [address] Scheduled Procedures Name Priority Associated Diagnoses Date/Ti [...] Procedure Name Priority Date/Time Associated Diagnosis Comments MO ARTHROCENTESIS ASPIR&/INJ SMALL JT/BURSA W/O US Routine 04/08/2024 8:30 AM EDT Arthritis of carpometacarpal (CMC) joint of both thumbs documented in this encounter Results * MO ARTHROCENTESIS ASPIR&/INJ SMALL JT/BURSA W/O US (04/08/2024 [...] to verify the correct patient, procedure, equipment, it application support analyst and site/side marked as required. Patient was [...] Left documented in this encounter Care Teams Nursing Educator Relationship Specialty Start Date End Date Shaneka Delgado DO [address] [place] [address] PCP - General Family Medicine 11/26/18 documented as of this encounter"
[2024-07-24] MEDS: CIPROFLOXACIN / D5W 400 MG/200 ML BAG IV SCH (06:27)
--- NOTE | 2024-07-24 08:11 | Hospitalist Progress Note ---
<Statement entered by Raul Acevedo, DO - 07/24/24 13:38> I have seen and examined the patient and have discussed the case with the provider above. I have reviewed the advanced practitioner's documentation, and I agree with, and take responsibility for that plan of care. 14 minutes in care and coordination of the patient. Patient reporting slightly improved abdominal pain. Patient reports significantly improved urticaria Reviewed CTA chest finding with patient Plan of care as outlined below Date of Service July 24, 2024 Assessment & Plan (1) Diverticulitis: (2) Hepatic lesion: (3) Urticaria due to drug allergy: Plan Aurora Goss is a 59y/o F with PMHx significant for GERD with esophagitis, IBS, endometriosis, diverticulosis, history of diverticulitis, arthritis of carpometacarpal joint of both thumbs and paroxysmal SVT who presented to the ED on 07/23/24 via referral from her PCP for further evaluation of recent CTAP findings. Patient was recently on vacation in [place] when she started to experience abdominal pain and discomfort. Was seen by at urgent care facility in [place] and prescribed a course of oral Augmentin for presumed diverticulitis with some improvement in her symptoms. However, she started to develop a sore throat and generalized malaise over the weekend. Then she developed diffuse hives on Monday night and her abdominal discomfort significantly increased. She visited her PCP on 07/23/24. A CTAP was ordered and revealed the following: segmental thickening of the sigmoid colon with associated fat stranding representing acute diverticulitis/colitis, low-density region with a rim of high attenuation in the sigmoid colon could represent an intramural abscess/phlegmon in the wall. She was therefore referred to the ED the given concern of an abscess/phlegmon discovered on the CTAP. She completed approximately 8 days of the 10-day Augmentin course. Diverticulitis: Outpatient CTAP findings as per above. WBC count improving. Continue IV ciprofloxacin & Flagyl. Will stop IVF after 2 bags. Continue clear liquid diet for now. Pain control. Probiotic onboard. Blood cx pending - follow. Surgical consult warranted if patient not improving on IV ABX therapy. Would benefit from [facility] GI follow-up appt at time of d/c, she has seen them in the past. Hepatic Lesion: Outpatient CTAP as outlined above showed a low-density left hepatic lobe lesion. Interpretation read this finding as a probably complex cyst. Will need outpatient liver U/S. Urticarial Rash 2/2 Augmentin Use: As mentioned above. Probable adverse/allergic reaction to amoxicillin manifested by hives. No known penicillin allergy. S/p 40mg IV Solu-Medrol and 25mg IV Benadryl in the ED. Rash improved this morning. Prefer to avoid additional steroids if possible ISO possible abscess in the sigmoid colon. Continue Claritin and Pepcid for antihistamine effects. Continue PRN IV Benadryl. Pericardial Recess: Outpatient CTAP as referred to above also revealed an oval low-density region abutting the distal esophagus. Further assessment with chest CT was suggested. Chest CT done 07/23/24 revealed a 2.5 cm water attenuation density along the right lateral aspect of the distal esophagus which represents a pericardial recess, a BENIGN finding. Acute Anemia: Hgb 14.5 on admission --> Hgb 11.4 today. Patient denies any bloody BMs (has not gone ~2 days) or hematuria. Will obtain anemia w/u in AM. DVT Prophylaxis: SQ Lovenox Code Status: FULL CODE PCP: Shaneka Delgado DO Disposition: Admitted in Med/Surg - Anticipate she will be discharged home when medically stable. Patient seen in collaboration with Dr. Acevedo. Please see addendum. I spent a total of 60 minutes coordinating, documenting, and providing care for this patient excluding time spent in the performance of separately billed services. This included personally reviewing all current laboratories and imaging studies, medical reconciliation, outpatient chart review and discussion with specialists. This chart was completed in part utilizing Speech Voice Recognition Software. Grammatical errors, random word insertions, pronoun errors, and incomplete sentences are an occasional consequence of this system due to software limitations, ambient noise, and hardware issues. Any formal questions or concerns about the content, text, or information contained within the body of this dictation should be directly addressed to the provider for clarification. Admission and Anticipated Discharge Date Admission Date: July 23, 2024 Subjective Patient seen and examined at bedside in room N387-1. Has been tolerating clear liquid diet without issue. Still having some lower abdominal pain and discomfort, however it is somewhat improving. Her hives have gotten much better since the IV Solu-Medrol and Benadryl given in the ED. Reports her itching has decreased tremendously. No known allergy to penicillins in the past. Review of Systems Review of Systems: At least ten systems reviewed and negative, except as noted in the subjective section. Physical Exam Physical Exam: General: Vitals as above, NAD, sitting up in bed, pleasant, conversing appropriately. A+Ox3, euthymic affect. HEENT: Normocephalic, atraumatic. PERRL, conjunctivae normal, anicteric sclerae, oropharynx normal. Respiratory: Normal respiratory effort, lungs clear to auscultation, no wheezing. No accessory muscle use. Cardiovascular: Regular rate, rhythm, no murmur, normal peripheral pulses, no BLE edema. Vessels: No JVD. Abdomen/GI: Normal bowel sounds, soft, tender to palpation across the lower abdominal region (RLQ>LLQ). Extremities/Musculoskeletal: No cyanosis or clubbing, extremities motor strength 5/5, moves all extremities. Neurologic: EOMI, no focal deficits, CN's II-XI not formally tested but appear grossly intact bilaterally. Skin: Warm/dry, urticarial rash covering her extremities + abdomen + back still present but has significantly improved. Results & Data Results & Data Vital Signs (Past 12 Hours) Vital Signs Temp Pulse Resp BP Pulse Ox O2 Del Method 07/24/24 07:17 36.7 C 67 16 109/66 97 Room Air 07/23/24 22:11 37 C 78 14 110/69 96 Room Air Laboratory Results Short CBC 07/23/24 07/24/24 Range/Units 16:00 07:53 WBC 14.09 H 8.34 (4.8-10.8) K/ul Hgb 14.5 11.4 L D (12.0-16.0) g/dl Hct 42.4 33.1 L (37.0-47.0) % Plt Count 295 229 (130-400) K/uL BMP 07/23/24 07/24/24 16:00 07:53 Sodium 135 L 141 Potassium 3.6 4.0 Chloride 99 111 H Carbon Dioxide 28 26 BUN 13 12 Creatinine 0.72 0.60 Glucose 94 116 H Calcium 9.9 8.7 Liver Function 07/23/24 Range/Units 16:00 Total Bilirubin 0.7 (0.2-1.0) mg/dl AST 18 (13-39) U/L ALT 14 (7-52) U/L Alkaline Phosphatase 59 (34-104) U/L Albumin 4.9 (3.4-5.0) gm/dl Urine 07/23/24 Range/Units 16:09 Urine Color Yellow Urine Appearance Clear (Clear) Urine pH 7.5 (4.5-7.5) Ur Specific Conrad 1.011 (1.000-1.030) Urine Protein Negative (Negative) Urine Glucose (UA) Negative (Negative) Diagnostic Findings Chest CT 07/23/24 17:24 CT OF THE CHEST WITHOUT IV CONTRAST CLINICAL HISTORY: Lesion near distal esophagus seen outpt abd CT. COMPARISON STUDY: Chest radiograph April 02, 2015. CT of the abdomen and pelvis April 02, 2015. CT DOSE: 312.36 mGy.cm TECHNIQUE: Axial images of the chest were obtained without IV contrast. Images were reviewed in the axial, sagittal, and coronal planes. IV contrast was not administered for this examination. Automated exposure control was utilized for the study. A dose lowering technique was utilized adhering to the principles of ALARA. FINDINGS: No enlarged mediastinal, axillary or hilar lymph nodes are present. Size of the heart is normal. There is no significant pericardial effusion. A 2.5 cm water attenuation density along the right lateral aspect of the distal e sophagus represents a pericardial recess. This could reflect the abnormality on prior outpatient imaging study. No pneumothorax or pleural effusion is present. There is no consolidation to suggest pneumonia. There are no suspicious pulmonary nodules. No fractures within the bony thorax are present. There is a left hepatic lobe cyst. IMPRESSION: 1. 2.5 cm water attenuation density along the right lateral aspect of the distal esophagus which represents a pericardial recess, a benign finding. Correlation with outpatient abdominal CT to confirm that this represents the abnormality in question is recommended. 2. No thoracic lymphadenopathy. No mediastinal masses. 3. No consolidation to suggest pneumonia. ACT 112: Negative or not required by law. Electronically signed by: Rigoberto Pereira M.D. 07/23/2024 7:15 PM
[2024-07-24 08:28] LABS: Hematocrit (blood only) 33.1 % (37.0-47.0); Hemoglobin 11.4 g/dl (12.0-16.0); Mean Corpuscular Hemoglobin 30.5 pg (25.0-34.0); Mean Corpuscular Hgb Conc 34.4 g/dL (32.0-36.0); Mean Corpuscular Volume 88.5 fL (80.0-100.0); Mean Platelet Volume 9.1 fL (9.4-12.4); Platelet Count 229 K/uL (130-400); RDW Coefficient of Variation 12.7 % (11.5-14.5); RDW Standard Deviation 41.5 fL (36.4-46.3); Red Blood Count 3.74 M/uL (4.20-5.40); White Blood Count 8.34 K/ul (4.8-10.8)
[2024-07-24 08:35] LABS: Calcium 8.7 mg/dl (8.6-10.3); Creatinine Clr Calc Pharmacy 108.8 ml/min; Est GFR (African American) 114.8 ml/min; Est GFR (Non-African American) 99.1 ml/min
[2024-07-24] MEDS: ESCITALOPRAM OXALATE 10 MG TAB PO SCH (08:39)
[2024-07-24] MEDS: diphenhydrAMINE 50 MG/ML VIAL IV PRN (10:21)
[2024-07-24] MEDS: GABAPENTIN 100 MG CAP PO STA (22:50)
[2024-07-25 07:43] LABS: Hemoglobin 11.4 g/dl (12.0-16.0); Mean Corpuscular Hemoglobin 30.5 pg (25.0-34.0); Mean Corpuscular Hgb Conc 33.5 g/dL (32.0-36.0); Mean Corpuscular Volume 90.9 fL (80.0-100.0); Mean Platelet Volume 9.3 fL (9.4-12.4); Platelet Count 202 K/uL (130-400); RDW Coefficient of Variation 12.9 % (11.5-14.5); RDW Standard Deviation 42.3 fL (36.4-46.3); Red Blood Count 3.74 M/uL (4.20-5.40); White Blood Count 5.26 K/ul (4.8-10.8)
[2024-07-25 07:51] VITALS: BP 130/78; PULSE 67; RESP 19; TEMP 97.7; O2SAT 96
[2024-07-25 07:59] LABS: BUN Creatinine Ratio 14.3 (10-20); Calcium 8.9 mg/dl (8.6-10.3); Creatinine Clr Calc Pharmacy 93.3 ml/min; Est GFR (African American) 109.1 ml/min; Est GFR (Non-African American) 94.2 ml/min; Magnesium 1.8 mg/dl (1.7-2.4); Phosphorus 2.2 mg/dl (2.5-4.9); Potassium 4.1 mmol/L (3.5-5.1)
[2024-07-25 08:19] LABS: Ferritin 128.7 ng/ml (8-388)
[2024-07-25 08:23] LABS: Folate (Folic Acid),Ser orPlas 10.46 ng/ml (>5.38)
[2024-07-25] MEDS ORDERED: diphenhydrAMINE Capsule 25 MG CAP PO PRN (11:31)
--- NOTE | 2024-07-25 11:39 | Hospitalist Progress Note ---
<Statement entered by Raul Acevedo, DO - 07/25/24 13:53> I have seen and examined the patient and have discussed the case with the provider above. I have reviewed the advanced practitioner's documentation, and I agree with, and take responsibility for that plan of care. 8 minutes spent on care and coordination Patient reports feeling significantly improved, has less tenderness in lower quadrants, no guarding or rigidity Advance diet Continue IV antibiotics Plan of care as outlined below Date of Service July 25, 2024 Assessment & Plan (1) Diverticulitis: (2) Hepatic lesion: (3) Urticaria due to drug allergy: Plan Aurora Goss is a 59y/o F with PMHx significant for GERD with esophagitis, IBS, endometriosis, diverticulosis, history of diverticulitis, arthritis of carpometacarpal joint of both thumbs and paroxysmal SVT who presented to the ED on 07/23/24 via referral from her PCP for further evaluation of recent CTAP findings. Patient was recently on vacation in [place] when she started to experience abdominal pain and discomfort. Was seen by at urgent care facility in [place] and prescribed a course of oral Augmentin for presumed diverticulitis with some improvement in her symptoms. However, she started to develop a sore throat and generalized malaise over the weekend. Then she developed diffuse hives on Monday night and her abdominal discomfort significantly increased. She visited her PCP on 07/23/24. A CTAP was ordered and revealed the following: segmental thickening of the sigmoid colon with associated fat stranding representing acute diverticulitis/colitis, low-density region with a rim of high attenuation in the sigmoid colon could represent an intramural abscess/phlegmon in the wall. She was therefore referred to the ED the given concern of an abscess/phlegmon discovered on the CTAP. She completed approximately 8 days of the 10-day Augmentin course. Diverticulitis: Outpatient CTAP findings asabove. WBC count improving. IV ciprofloxacin & Flagyl - started on 07/23, continue x 10 day course and switch to PO. Tolerating clear liquid diet so will advance and monitor. Pain control. Probiotic onboard. Blood cx NGTD after 24 hrs. Surgical consult warranted if patient not improving on IV ABX therapy. Will need [facility] GI follow-up appt at time of d/c, she has seen them in the past. Hepatic Lesion: Outpatient CTAP as outlined above showed a low-density left hepatic lobe lesion. Interpretation read this finding as a probably complex cyst. Will need outpatient liver U/S. Urticarial Rash 2/2 Augmentin Use: Improving Suspected adverse/allergic reaction to amoxicillin manifested by hives. Added amoxicillin to allergy list. IV Solu-Medrol and IV Benadryl have been on board x 48 hrs. Will switch benadryl to PO due to c/o feeling lightheaded with taking it IV. Prefer to avoid additional steroids if possible ISO possible abscess in the sigmoid colon. Continue Claritin and Pepcid for antihistamine effects. Pericardial Recess: Outpatient CTAP as referred to above also revealed an oval low-density region abutting the distal esophagus. Further assessment with chest CT was suggested. Chest CT done 07/23/24 revealed a 2.5 cm water attenuation density along the right lateral aspect of the distal esophagus which represents a pericardial recess, a BENIGN finding. Acute Anemia: Hgb 14.5 on admission --> Hgb 11.4 today. Patient denies any bloody BMs (has not gone ~2 days) or hematuria. Iron 54, TIBC 209, Transferrin 26, Ferritin 128.7 DVT Prophylaxis: SQ Lovenox Code Status: FULL CODE PCP: Shaneka Delgado DO Disposition: From home, likely dc home tomorrow Patient seen in collaboration with Dr. Acevedo. Please see addendum. Total of 45 minutes coordinating, documenting, and providing care for this patient excluding time spent in the performance of separately billed services. This included personally reviewing all current laboratories and imaging studies, medical reconciliation, outpatient chart review and discussion with specialists. Admission and Anticipated Discharge Date Admission Date: July 23, 2024 Subjective Patient seen and examined this morning. Has been tolerating clear liquid diet without issue. We will advance it for lunch today. C/o abdominal bloating, nonpainful, regular bowel movements. No nausea. Hives improved, minimal puritis. Rash still faintly present over arms and legs in small areas. Continue IV Solu-Medrol -- pt reports feeling lightheaded with Benadryl IV so will switch it to PO. No known allergy to penicillins in the past but have added amoxicillin to list due to this reaction. 10 point ROS reviewed and otherwise negative. Physical Exam Physical Exam: General: awake, alert, no apparent distress, white female Head: Normocephalic, atraumatic ENT: PERRL, EOMI, no pharyngeal exudate, mucous membranes moist Chest: Clear to auscultation, on room air, no adventitious breath sounds Cardiac: Regular rate and rhythm, no murmur, no JVD, normal peripheral pulses, good capillary refill Abdominal: NABS x 4 quadrants, soft, Minimally distended, nontender to palpation, no rebound or guarding Extremities: Normal inspection, no peripheral edema or erythema, calfs nontender to palpation Skin: faint erythematous areas of hive lesions ( less than 1 cm diameter ) maybe 3-5 per extremity, on arms and legs, not involving the trunk or back. Psych: Normal mood and affect Neuro: AAO x 3, strength intact bilaterally and rated 5/5, no motor deficits, speech is clear, no peripheral sensory deficits Results & Data Results & Data Vital Signs (Past 12 Hours) Vital Signs Temp Pulse Resp BP Pulse Ox O2 Del Method 07/25/24 07:49 36.5 C 67 19 130/78 96 Room Air Laboratory Results 07/23/24 16:00 Aerobic Blood Culture - Preliminary Blood No growth in Aerobic bottle after 24 hours. Anaerobic Blood Culture - Preliminary No growth in Anaerobic bottle after 24 hours. 07/25/24 06:56 WBC 5.26 RBC 3.74 L Hgb 11.4 L Hct 34.0 L MCV 90.9 MCH 30.5 MCHC 33.5 RDW Std Deviation 42.3 RDW Coeff of Gia 12.9 Plt Count 202 MPV 9.3 L Sodium 142 Potassium 4.1 Chloride 111 H Carbon Dioxide 27 Anion Gap 4 BUN 10 Creatinine 0.70 Est Cr Clr Drug Dosing 93.3 Est GFR ( Amer) 109.1 Est GFR (Non-Af Amer) 94.2 BUN/Creatinine Ratio 14.3 Glucose 88 Calcium 8.9 Phosphorus 2.2 L Magnesium 1.8 Iron 54 TIBC 209 L Unsaturated IBC 155 Transferrin % Sat 26 Ferritin 128.7 Vitamin B12 260 Folate 10.46
--- NOTE | 2024-07-25 14:52 | Discharge Summary ---
<Statement entered by Raul Acevedo, DO - 07/25/24 16:09> I have seen and examined the patient and have discussed the case with the provider above. I have reviewed the advanced practitioner's documentation, and I agree with, and take responsibility for that plan of care. Patient doing well throughout the day. Reviewed discharge plans as outlined below with [facility]. Date of Service July 25, 2024 Admission HPI Per Admitting Provider Patient is a 59-year-old female with known diverticulosis with previous episodes of diverticulitis that was treated as an outpatient. Was on vacation in about 2 weeks ago when she started with some abdominal discomfort. Seen urgent care and was started on Augmentin. Seems to get better within 48 hours of starting the Augmentin and continued the course of treatment. Over the weekend she states that she started with some sore throat and generalized malaise. She reportedly tested negative for COVID-19 with a home test. However last night she woke up with diffuse hives over her abdomen arms legs and back. And her abdominal discomfort significantly increased. She had an appointment with her PCP earlier today. Outpatient laboratory studies showed leukocytosis and outpatient CT of the abdomen pelvis revealed persistent diverticulitis with small potentially developing phlegmon versus abscess in the wall of the sigmoid colon. She was referred to the emergency department for further care. In the emergency department reviewed see if some Solu-Medrol for the hives. WBCs was increased at 14 and she was referred for further evaluation and treatment in the hospital due to failing outpatient treatment. Patient at the time of my evaluation is feeling improved. She reports never having issues with penicillins before. No other new medications or products that she could point to that may have caused t he hives. She reports having had successful treatment of Augmentin for diverticulitis in the past. Her last colonoscopy was in 2020 which showed the diverticulosis. She denies any documented fevers. No chills or rigors. Did have some constipation early on in her course of care but none since. No urinary complaints. States that her pain is really across her abdomen and suprapubically. is at bedside confirms history. Patient does not smoke does not use alcohol. Admission Exam Per Admitting Provider Physical Exam Physical Exam: Constitutional: Alert, ill in appearance, no acute distress, mildly toxic in appearance HEENT: Mucous membranes moist. Sclera clear Neck: Soft, no adenopathy Lungs: Clear to auscultation, decreased, no wheezes rales or rhonchi CV: S1-S2, regular Abdomen: Soft, suprapubic tenderness, right lower quadrant tenderness, left lower quadrant tenderness most significant. Some mild rebound but no guarding or rigidity Extremities: No significant edema Musculoskeletal: No significant joint tenderness Neuro: No focal deficits Derm: Patient with large urticaria over her abdomen, upper arms, upper legs, back, warm to touch Psych: Cooperative, normal mood Principal Diagnosis Acute diverticulitis Discharge Exam General: awake, alert, no apparent distress, white female Head: Normocephalic, atraumatic ENT: PERRL, EOMI, no pharyngeal exudate, mucous membranes moist Chest: Clear to auscultation, on room air, no adventitious breath sounds Cardiac: Regular rate and rhythm, no murmur, no JVD, normal peripheral pulses, good capillary refill Abdominal: NABS x 4 quadrants, soft, Minimally distended, nontender to palpation, no rebound or guarding Extremities: Normal inspection, no peripheral edema or erythema, calfs nontender to palpation Skin: faint erythematous areas of hive lesions ( less than 1 cm diameter ) maybe 3-5 per extremity, on arms and legs, not involving the trunk or back. Psych: Normal mood and affect Neuro: AAO x 3, strength intact bilaterally and rated 5/5, no motor deficits, speech is clear, no peripheral sensory deficits Discharge Data Allergies Allergy/AdvReac Type Severity Reaction Status Date / Time amoxicillin Allergy Intermediate Hives Verified 07/23/24 17:11 Consultations 07/23/24 16:47 ED Decision to Admit Stat Ordered Studies 07/23/24 17:24 CT chest diagnostic wo con Routine Hospital Course (1) Diverticulitis: (2) Hepatic lesion: (3) Urticaria due to drug allergy: Gabriela Goss is a 59y/o F with PMHx significant for GERD with esophagitis, IBS, endometriosis, diverticulosis, history of diverticulitis, arthritis of carpometacarpal joint of both thumbs and paroxysmal SVT who presented to the ED on 07/23/24 via referral from her PCP for further evaluation of recent CTAP findings. Patient was recently on vacation in [place] when she started to experience abdominal pain and discomfort. Was seen by at urgent care facility in [place] and prescribed a course of oral Augmentin for presumed diverticulitis with some improvement in her symptoms. However, she started to develop a sore throat and generalized malaise over the weekend. Then she developed diffuse hives on Monday night and her abdominal discomfort significantly increased. She visited her PCP on 07/23/24. A CTAP was ordered and revealed the following: segmental thickening of the sigmoid colon with associated fat stranding representing acute diverticulitis/colitis, low-density region with a rim of high attenuation in the sigmoid colon could represent an intramural abscess/phlegmon in the wall. She was therefore referred to the ED the given concern of an abscess/phlegmon discovered on the CTAP. She completed approximately 8 days of the 10-day Augmentin course. Diverticulitis: Outpatient CTAP findings asabove. WBC count improving. IV ciprofloxacin & Flagyl - started on 07/23, continue x 10 day course and switch to PO. -- given 7 day oral abx on discharge, will finish on 07/31/24. Tolerating clear liquid diet so will advance and monitor. Pain control. Probiotic onboard. Blood cx NGTD after 24 hrs. Will need [facility] follow-up appt at time of d/c, she has seen them abot 3 years ago. Message left for them to call her and to have appt arranged. Hepatic Lesion: Outpatient CTAP as outlined above showed a low-density left hepatic lobe lesion. Interpretation read this finding as a probably complex cyst. Will need outpatient liver U/S. Urticarial Rash 2/2 Augmentin Use: Improving Suspected adverse/allergic reaction to amoxicillin manifested by hives. Added amoxicillin to allergy list. IV Solu-Medrol and IV Benadryl have been on board x 48 hrs. Will switch benadryl to PO due to c/o feeling lightheaded with taking it IV. Prefer to avoid additional steroids if possible ISO possible abscess in the sigmoid colon. Continue Claritin and Pepcid for antihistamine effects. Pericardial Recess: Outpatient CTAP as referred to above also revealed an oval low-density region abutting the distal esophagus. Further assessment with chest CT was suggested. Chest CT done 07/23/24 revealed a 2.5 cm water attenuation density along the right lateral aspect of the distal esophagus which represents a pericardial recess, a BENIGN finding. Acute Anemia: Hgb 14.5 on admission --> Hgb 11.4 today. Patient denies any bloody BMs (has not gone ~2 days) or hematuria. Iron 54, TIBC 209, Transferrin 26, Ferritin 128.7 Pt is identified as high LACE score for admission. DVT Prophylaxis: SQ Lovenox Code Status: FULL CODE PCP: Shaneka Delgado DO Disposition: From home, likely dc home tomorrow Patient seen in collaboration with Dr. Acevedo. Please see addendum. Total of 45 minutes coordinating, documenting, and providing care for this patient excluding time spent in the performance of separately billed services. This included personally reviewing all current laboratories and imaging studies, medical reconciliation, outpatient chart review and discussion with specialists. Total Time Total Time Spent Total Time Spent (In Minutes): 38 Discharge Plan Discharge Items Patient Disposition: Home - Self-Care Reason For Visit: DIVERTICULITIS Discharge Diagnosis: Diverticulitis Condition on Discharge: Fair Activity: Per Instructions section Lifting: Gradually increase as tolerated Bathing: No limitations Sexual Activity: When tolerated Exercise/Sports: Rest today and Gradually increase as tolerated Driving/Machine Use: No limitations Weightbearing: Full weightbearing Non-emergency contact: Primary Care Provider Call non-emergency contact if: you have any medication questions, your symptoms worsen, your pain is not controlled, your pain is worsening, you have a fever and your temperature is above 101 Follow-up/Referrals: Shaneka Delgado DO [Primary Care Provider] - (Date & Time 07/30/2024 10:00 AM Provider Shaneka Delgado DO Department [facility] ) Diet: Regular Addtl Attending Provider Instructions: You were admitted to [facility] due to Abdominal pain and diagnosed with acute diverticulitis. During your stay here you were treated with supportive care, medications including antibiotics of ciprofloxacin and flagyl IV. You also presented with severe rash (ie. urticaria) which was suspected to be due to amoxicillin allergic reaction. You were treated with IV steroids (solumedrol), famotidine and benadryl which improved the itching and rash. Amoxicillin is listed as an allergy in your chart now. You should not take this medication or other penicillins in the future. Anemia workup was completed, showing that you would benefit from iron tablet s upplementation. Take one tablet every other day. Take a stool softener with this as the main side effect of oral iron is constipation. Imaging studies which were completed include CT abdomen plevis which was done as an outpatient. This was abnormal showing thickening of the sigmoid colon with stranding and possible early intramural abscess phlegmon in the wall of the sigmoid colon. Antibiotics improved your symptoms to treat this possible early abscess formation. Hepatic complex cyst noted and will require follow up imaging with ultrasound as an outpatient. Restless leg syndrome was treated with gabapentin at bedtime, you may continue this medication prior to going to sleep to help with symptoms. Medications: Continue taking you medications as prescribed: Cipro 500 mg twice daily x 7 more days, completes 10 day course. Take next dose this evening. Flagyl 500 mg every 8 hours x 7 more day, completes 10 day course. Take next dose this evening. Ferrous sulfate 325 mg ( iron supplementation) every other day Famotidine (Pepcid) 20 mg daily to assist with H1 blocking mechanism for allergic reactions for next week. Loratadine 10 mg daily for allergic reaction symptoms Benadryl 25 mg po Q6H as needed for hives and itching - you may break this tablet in half if you notice it causes any drowsiness. Gabapentin 100 mg at bedtime for restless leg syndrome Appointments: Follow up with PCP within 1 week, an appointment has been requested for you. Follow up with outpatient Gastroenterology , it is recommended that you have a follow up outpatient liver ultrasound to further evaluate the complex cyst that was seen on your liver on CT abd/pelvis. Pending Studies at Discharge: No Studies:: Will need Ultrasound of the Liver Stand-Alone Forms: [facility], Work/School Release, Smoking Cessation Medications and DC Order Prescriptions: New diphenhydramine HCl [Benadryl] 25 mg Capsule 25 mg PO Q6H PRN (Reason: hives) 14 Days Qty: 30 0RF loratadine [Wal-itin] 10 mg Tablet 10 mg PO QAM 14 Days Qty: 14 0RF ciprofloxacin HCl [Cipro] 500 mg tablet 500 mg PO BID Qty: 15 0RF metronidazole 500 mg tablet 500 mg PO TID 7 Days Qty: 22 0RF famotidine 20 mg tablet 20 mg PO DAILY Qty: 7 0RF gabapentin 100 mg capsule 100 mg PO HS Qty: 30 0RF ferrous sulfate 325 mg (65 mg iron) tablet 325 mg PO Q OTHER DAY Qty: 30 0RF Continued escitalopram oxalate 10 mg tablet 10 mg PO DAILY Qty: 90 3RF sulfacetamide sodium-sulfur 10-5 % (w/w) cleanser 1 applic TOPICAL DIRECTED PRN (Reason: Other) adapalene 0.1 % cream 1 applic TOPICAL HS PRN (Reason: Other) IBgard 1 tab PO DAILY Probiotic 1 cap PO DAILY estradiol 0.01 % (0.1 mg/gram) cream 1 g vaginal 2XWK PRN (Reason: Other) Discharge Orders: Discharge Order (Routine); Ordered 07/25/24 Ordered By: Roxanna Avalos/Other Patient Handouts: Low-Fiber Diet Admission Data Admit Date/Time: 07/23/24 17:09 Attending Provider: Raul Acevedo Admit Provider: Raul Acevedo Primary Care Provider: Shaneka Delgado Other Providers: Raul Acevedo
== END 2024-07-25 15:32 | disposition home or self-care (01) | DRG 392 ==
LOC: ED 15:18 → 3N 17:09
DX: N80.9 Endometriosis, unspecified; K21.00 Gastro-esophageal reflux disease with esophagitis, without bleeding; K57.20 Diverticulitis of large intestine with perforation and abscess without bleeding; K76.9 Liver disease, unspecified; K58.9 Irritable bowel syndrome, unspecified; Z88.0 Allergy status to penicillin; T36.0X5A Adverse effect of penicillins, initial encounter; D64.9 Anemia, unspecified; F32.A Depression, unspecified; G25.81 Restless legs syndrome; Z79.899 Other long term (current) drug therapy; R93.1 Abnormal findings on diagnostic imaging of heart and coronary circulation; L50.0 Allergic urticaria